=== PATIENT | female | born 1990 | race Caucasian/White ===

== ENCOUNTER 2022-07-24 19:32 | Emergency (ER) | payer OTHER ==
[~2022-07-24] VITALS: Ht 162.6 cm; Wt 54.3 kg
[2022-07-25] MEDS ORDERED: KETOROLAC TROMETH 60MG/2ML VIAL IM ONE (00:15)
[2022-07-25 01:29] VITALS: BP 108/80
== END 2022-07-25 01:32 | disposition home or self-care (01) ==
LOC: ER 19:32
DX: S76.211A Strain of adductor muscle, fascia and tendon of right thigh, initial encounter (principal); R10.31 Right lower quadrant pain; W20.8XXA Other cause of strike by thrown, projected or falling object, initial encounter; Y93.89 Activity, other specified; Y92.89 Other specified places as the place of occurrence of the external cause; Y99.8 Other external cause status
CPT/HCPCS: 96372; 99283; J1885